=== PATIENT | female | born 1990 | race Caucasian/White ===

== ENCOUNTER 2019-03-11 19:38 | Inpatient (IN) | payer OTHER ==
--- OUTSIDE RECORDS SUMMARY | 2019-03-11 19:40 | XMS REPORT ---
:1990 [facility] Address [address] [place] [address] Dr. Malloy [address] [place] [id number] Care Team Providers Name Role Phone Unavailable Unavailable Unavailable Problems This patient has no known problems. Allergies, Adverse Reactions, Alerts This patient has no known allergies or adverse reactions. Medications This patient has no known medications.
[2019-03-11] MEDS ORDERED: BUTORPHANOL 1 MG/ML INJ IV PRN ×2 (20:35→21:01)
[2019-03-11] MEDS ORDERED: PROMETHAZINE 25 MG/ML VIAL IM PRN ×2 (20:35→21:01)
[2019-03-11] MEDS ORDERED: Ringers Lactate 1,000 ML IV PRN ×2 (20:35→21:01)
[2019-03-11] MEDS ORDERED: Ringers Lactate 1,000 ML IV SCH ×2 (21:00→22:00)
[2019-03-11] MEDS ORDERED: MEPERIDINE HCL 25 MG/0.5 ML IV PRN (21:01)
[2019-03-11] MEDS ORDERED: CARBOPROST TROME 250 MCG/ML IM PRN (21:01)
[2019-03-11] MEDS ORDERED: METHYLERGONOVINE 0.2MG/ML AMP IM PRN (21:01)
[2019-03-11] MEDS ORDERED: MIDAZOLAM HCL 2 MG/2 ML INJ IV PRN (21:01)
[2019-03-11] MEDS ORDERED: OXYTOCIN/LR 20 UNIT/1,000 ML BAG IV ONE (21:03)
[2019-03-11] MEDS ORDERED: CARBOPROST TROME 250 MCG/ML IM ONE (21:03)
[2019-03-11] MEDS ORDERED: METHYLERGONOVINE 0.2MG/ML AMP IM ONE (21:03)
[2019-03-11] MEDS ORDERED: LIDOCAINE 1% MPF 30 ML VIAL ONE ×2 (21:03→21:40)
[2019-03-11 21:44] LABS: Absolute Lymphocytes (CBC) 2.2 K/uL (0.7-4.9); Urine Appearance CLOUDY; Urine Bilirubin NEGATIVE (NEG); Urine Blood 3+ (NEG); Urine Color YELLOW; Urine Glucose NEGATIVE (NEG); Urine Protein TRACE (NEG); Urine Specific Gravity 1.025 (1.005-1.030); Urine Urobilinogen 0.2 mg/dL (0.2-1.0)
[2019-03-11 21:47] LABS: Basophils % 0.9 % (0-1.3); Hematocrit 44.3 % (36.0-45.0); MPV 9.9 fL (7.6-11.3); RBC Red Blood Cell Count 4.99 M/uL (3.86-4.86)
[2019-03-11] MEDS ORDERED: BISACODYL 10 MG RECTAL SUPP RECT PRN (21:57)
[2019-03-11] MEDS ORDERED: ACETAMINOPHEN 500 MG TAB PO PRN (21:57)
[2019-03-11] MEDS ORDERED: Oxycodone HCl/Acetaminophen 1 TAB TAB PO PRN ×2 (21:57)
[2019-03-11] MEDS ORDERED: DIPHENHYDRAMINE 25 MG TAB/CAP PO PRN (21:57)
[2019-03-11] MEDS ORDERED: DOCUSATE NA/SENNA CONC 1 TAB PO PRN (21:57)
[2019-03-11] MEDS ORDERED: OXYTOCIN/LR 20 UNIT/1,000 ML BAG IV SCH ×2 (22:00)
[2019-03-11 22:01] LABS: Urine Microscopic Reflex ORDER UMIC
[2019-03-11 22:42] LABS: Urine Culture Reflex Order REFLEXED
[2019-03-11 22:43] LABS: Urine Bacteria >50 /HPF (<20); Urine RBC <5 /HPF (NONE SEEN)
[2019-03-11] MEDS: IBUPROFEN 200 MG TAB PO PRN (22:45)
[2019-03-11 23:15] LABS: RPR (Rapid Plasma Reagin) NON-REACT (NON-REACT)
[2019-03-12 01:43] VITALS: BMI 26.9
--- NOTE | 2019-03-12 08:18 | OP ---
Surgeon: Ran Martinez MD A 28-year-old 1, para 0, 37 weeks 4 days, had been seen earlier in the evening with contracti ons, but made no cervical change. The contractions became irregular and patient was sent home. She re-presented having regular contractions, but again no cervical change, but over the next hour, dilat ed to 6 cm. I came immediately. Patient was then 8 cm and within the next 15 to 20 minutes, was com pletely dilated. Second stage of approximately 20 to 25 minutes. Patient was noted to have decelera tions from head compression. Patient delivered spontaneously a 7-pound male infant, Apgars 9 a nd 9. Midline second-degree laceration simulating episiotomy repaired with 2-0 chromic after local i nfiltration. Patient had had Stadol 1 mg IV, Phenergan 25 mg IM during the labor. Rh positive, immu ne to Rubella. Negative beta strep screen. Tolerated all procedures well. Final Diagnoses: Term intrauterine at 37 weeks 4 days. Vaginal delivery. MICKY/JENI Voice ID: [id number] Report ID: [id number]
[2019-03-12] MEDS: IBUPROFEN 200 MG TAB PO PRN ×3 (09:53→23:30)
[2019-03-13 07:14] VITALS: BP 116/69; TEMP 98.2
[2019-03-13] MEDS ORDERED: Tdap (Diph,Pertuss(Acell),Tet Vac) 0.5 ML SYR IMVAC ONE (07:29)
--- NOTE | 2019-03-14 10:34 | PN ---
No problems overnight. She is little concerned about her hemorrhoids. We discussed that. She is usi ng Tucks pads. She again requests no analgesics. She is Rh positive, immune to Rubella. Tdap has b een offered to her yesterday. No problems or questions this morning. MICKY/JENI Voice ID: [id number] Report ID: [id number]
--- NOTE | 2019-03-14 10:37 | DS ---
Date of Discharge: 03/13/2019 Summary: This is a 28-year-old primigravida 3, 37 weeks 4 days, admitted in early labor, progressed very rapidly, delivered spontaneously of a 7-pound, male , Apgars 9 and 9. Second-degree midli ne laceration simulating episiotomy repaired with 2-0 chromic under local infiltration. Amauri bower of the placenta, which was inspected and noted to be heavily calcified, but otherwise normal an d intact. Estimated blood loss 250 cc or less. Rh positive, immune to Rubella. Negative beta strep screen. ; afebrile, ambulating, and voiding. Lochia is normal. Dismissal Instructions: She will be reporting any temperature elevation of 100 degrees or greater, s evere pain, heavy bleeding, or any other type of abnormalities. She will be reporting Dr. Arora of [facility] on Thursday for further instructions. Tdap and flu shots encouraged. Discussion: Requested no analgesics on dismissal. Either will be dismissed later this evening or mo st likely tomorrow morning. We will see the chlorinator sometime later today. Final Diagnoses: Intrauterine gestation, 37 weeks 4 days. Vaginal delivery. Tdap offered. MICKY/JENI Voice ID: [id number] Report ID: [id number]
--- NOTE | 2019-03-14 10:43 | PREOPHP ---
Date of Admission: 03/11/2019 Mohini Templeton is a 28-year-old primigravida at 37 weeks 4 days, was seen earlier in the evening wit h contractions, made no cervical change and noted to be 2 cm, the same as in Dr. Luna's office last time she was checked, came back several hours later, still 2 cm, but nicky very firmly, was adm itted for a short period of time, she was 6 and now she is 8 cm. Complete rupture of membranes, erma r fluid noted, but patient was having some deep decelerations, could be early decelerations. Scalp e lectrode has been applied. Baby is that +1 station. Patient was progressing very rapidly. We will hydrate her, give her oxygen, put her on her side, but it looks like we will deliver in a relatively short period of time. MICKY/JENI Voice ID: [id number]
[2019-03-17 04:31] LABS: HBsAG Nonreactive (Nonreactive)
== END 2019-03-13 09:30 | disposition home or self-care (01) | DRG 807 ==
LOC: L&D 19:38 → OBSVTOIN 20:38 → 2ND-WC 20:38
PROVIDERS: ADMIT Specialist; ATTEND Specialist
PROC: 10907ZC Drainage of Amniotic Fluid, Therapeutic from Products of Conception, Via Natural or Artificial Opening (ICD-10-PCS; principal; 2019-03-11)
PROC: 10E0XZZ Delivery of Products of Conception, External Approach (ICD-10-PCS; 2019-03-11)
PROC: 0KQM0ZZ Repair Perineum Muscle, Open Approach (ICD-10-PCS; 2019-03-11)
DX: O70.1 Second degree perineal laceration during delivery (principal); Z37.0 Single live birth; O76 Abnormality in fetal heart rate and rhythm complicating labor and delivery; Z3A.37 37 weeks gestation of pregnancy; Z23 Encounter for immunization
CPT/HCPCS: 36415; 81003; 81015; 85025; 86592; 86901; 87086; 87088; 87340; 90471; 90715; 99218; J0595; J2210; J2550; J2590